=== PATIENT | female | born 1950 | race American Indian/Alaskan Native ===

== ENCOUNTER 2020-12-29 08:50 | Inpatient (IN) | payer MEDICARE ==
[2020-12-29] MEDS ORDERED: HYDROcodone/ACETAMINOPHEN 10-325MG TAB PO ONE (10:12)
--- NOTE | 2020-12-29 10:12 | Emergency Department Report ---
ED Upper Extremity Inj HPI - General Chief Complaint: Extremity Injury, Upper Stated Complaint: FALL/RT ARM INJURY Time Seen by Provider: 12/29/20 10:11 Source: patient Mode of arrival: Ambulatory Limitations: No Limitations - History of Present Illness Initial Comments: 70 yo AA comes to ER sp GLF. Mechanical in nature. She tripped on her slipper. Fall witnessed. Pt comes to ER via POV Co right elbow pain- large effusion on arrival On no blood thinners. Meds-BP medications AND METFORMIN Denies other injury radial and ulnar pulse plus 2 on exam MD Complaint: Injury to:: right, elbow -: Sudden Other Extremity Injury: Elbow: Right Other Injuries: none Handedness: right Place: home Improves With: immobilization Worsens With: movement of extremity Context: fall Associated Symptoms: denies other symptoms - Related Data Allergies Allergy/AdvReac Type Severity Reaction Status Date / Time No Known Allergies Allergy Unverified 12/29/20 10:01 ED Review of Systems ROS: Stated complaint: FALL/RT ARM INJURY Other details as noted in HPI Comment: All other systems reviewed and negative ED Past Medical Hx - Past Medical History Previous Medical History?: Yes Hx Hypertension: Yes Hx Diabetes: Yes - Surgical History Past Surgical History?: Yes - Family History Family history: no significant - Social History Smoking Status: Never Smoker Substance Use Type: None ED Physical Exam - General Limitations: No Limitations General appearance: alert, in no apparent distress - Head Head exam: Present: atraumatic, normocephalic - Eye Eye exam: Present: normal appearance - ENT ENT exam: Present: mucous membranes moist - Neck Neck exam: Present: normal inspection - Respiratory Respiratory exam: Present: normal lung sounds bilaterally. Absent: respiratory distress - Cardiovascular Cardiovascular Exam: Present: regular rate, normal rhythm. Absent: systolic murmur, diastolic murmur, rubs, gallop - GI/Abdominal GI/Abdominal exam: Present: soft, normal bowel sounds - Extremities Exam Extremities exam: Present: normal inspection - Expanded Upper Extremity Exam Right Elbow exam: Present: tenderness, swelling, abrasion, other (LARGE EFFUSION) Forearm Wrist exam: Present: normal inspection Hand Wrist exam: Present: normal inspection - Back Exam Back exam: Present: normal inspection - Neurological Exam Neurological exam: Present: alert, oriented X3 - Psychiatric Psychiatric exam: Present: normal affect, normal mood - Skin Skin exam: Present: warm, dry, intact, normal color. Absent: rash ED Course Vital Signs 12/29/20 09:58 Temperature 98.6 F Pulse Rate 60 Respiratory 18 Rate Blood Pressure 179/77 [Left] O2 Sat by Pulse 100 Oximetry - Reevaluation(s) Reevaluation #1: 12/29/20 11:06 Dr Ronald headley Reevaluation #2: 12/29/20 11:[address] JACKSON- ADMIT FOR SURGICAL REPAIR IN AM Reevaluation #3: 12/29/20 11:[address] WADSWORTH AND DR AUGUSTINE WILL ADMIT FOR OR IN AM PT UPDATED ED Medical Decision Making - Radiology Data Radiology results: report reviewed, image reviewed SEE REPORT - Medical Decision Making Vital Signs 12/29/20 09:58 Temperature 98.6 F Pulse Rate 60 Respiratory 18 Rate Blood Pressure 179/77 [Left] O2 Sat by Pulse 100 Oximetry XRAY NOTED MEDICATED FOR PAIN POST SPLINT ORDERED- ARCHIE WILL PLACE STAFFED WITH DR JACKSON/ANANTH/FAWN [place] [facility] [place] DR AUGUSTINE WILL SEE. [facility] [address] AWARE OF ADMIT; [facility] AWARE OF ADMIT AND NEED FOR SPLINT PT HAS BEEN UPDATED ON PLAN OF CARE. - Differential Diagnosis RO FX Critical care attestation.: If time is entered above; I have spent that time in minutes in the direct care of this critically ill patient, excluding procedure time. ED Disposition Clinical Impression: Olecranon fracture, Effusion of elbow joint, right Disposition: ADMITTED INPATIENT Is pt being admited?: Yes Does the pt Need Aspirin: No Condition: Stable Time of Disposition: 11:28
[2020-12-29] MEDS ORDERED: HYDROmorphone 1 MG/1 ML INJ IV ONE (11:27)
--- NOTE | 2020-12-29 11:34 | XRay Report ---
RIGHT ELBOW 2 VIEWS INDICATION: PAIN SP FALL. COMPARISON: None. IMPRESSION: A moderately displaced fracture is identified through the olecranon with intra-articular extension at the elbow joint. Displacement of the fracture measures up to 2.6 cm. The radial head an d distal humerus appear intact. Large hemarthrosis and severe soft tissue swelling is noted. Signer Name: Asad Ann Jr, MD Signed: 12/29/2020 11:23 AM Workstation Name: [id number]
--- NOTE | 2020-12-29 11:48 | History and Physical Report ---
History of Present Illness Chief complaint: I fell and hurt my arm History of present illness: 70 YO Female with Obesity Hypoventilation Syndrome, HTN, DM presents to ED for evaluation. Patient reported "I slipped and fell and hurt my arm". Patient states that she tripped and fell and landed on her right arm. Patient states that she experienced pain and swelling to her right arm shortly after her fall. Patient transported to [facility] via private vehicle for further care and evaluation of the aforementioned symptoms. The patient was seen and evaluated in the emergency department. All lab and imaging studies reviewed. Right arm x-ray was obtained and revealed a right displaced olecranon process fracture compli cated by right elbow effusion. Patient complains of severe pain with arm movement. Orthopedic surgery team consulted. Patient is pending surgical intervention. Patient denies fever, chills, chest pain, palpitation, productive cough, skin rash, recent ill contact, or known exposure to COVID-19. No prior admission for review. No medication listed at time of admission for reconciliation. Advanced care planning conducted in ED. Past History Past Medical History: diabetes, hypertension Past Surgical History: No surgical history, Other (Reviewed) Social history: , lives with family. denies: smoking, alcohol abuse, prescription drug abuse Family history: diabetes, hypertension Medications and Allergies Allergies Allergy/AdvReac Type Severity Reaction Status Date / Time No Known Allergies Allergy Unverified 12/29/20 10:01 Review of Systems Constitutional: other (I fell and hurt my arm), no weight loss, no weight gain, no fever, no chills Ears, nose, mouth and throat: no ear pain, no ear discharge, no tinnitis, no nasal congestion, no nasal discharge, no sinus pressure Breasts: no change in shape, no swelling, no mass Cardiovascular: no chest pain, no palpitations, no rapid/irregular heart beat, no edema, no syncope Respiratory: no cough, no cough with sputum, no hemoptysis, no shortness of breath Gastrointestinal: nausea, no abdominal pain, no vomiting, no diarrhea Genitourinary Female: no pelvic pain, no flank pain, no dysuria, no urinary frequency, no urgency Rectal: no pain, no incontinence, no bleeding Musculoskeletal: other (Right elbow pain and swelling) Integumentary: no rash, no pruritis, no redness, no sores Neurological: no head injury, no transient paralysis, no paralysis, no parathesias, no tingling, no seizures, no tremors Psychiatric: no anxiety, no memory loss, no sleep disturbances, no hypersomnia, no suicidal ideation Endocrine: no cold intolerance, no heat intolerance, no excessive thirst, no polydipsia, no nocturia, no excessive sweating Hematologic/Lymphatic: no easy bruising, no easy bleeding, no lymphedema Allergic/Immunologic: no allergic rhinitis, no wheezing, no persistent i nfections, no angioedema Exam - Constitutional Vitals: Temp Pulse Resp BP Pulse Ox 98.6 F 60 18 179/77 100 12/29/20 09:58 12/29/20 09:58 12/29/20 09:58 12/29/20 09:58 12/29/20 09:58 General appearance: Present: mild distress, obese - EENT Eyes: Present: PERRL ENT: hearing intact, clear oral mucosa - Neck Neck: Present: supple, normal ROM - Respiratory Respiratory effort: normal Respiratory: bilateral: CTA - Cardiovascular Heart Sounds: Present: S1 & S2. Absent: rub, click - Extremities Extremities: pulses symmetrical, No edema Peripheral Pulses: within normal limits - Abdominal General gastrointestinal: Present: soft, non-tender, non-distended, normal bowel sounds Female genitourinary: Present: normal - Integumentary Integumentary: Present: clear, warm, dry - Musculoskeletal Musculoskeletal: other (Right elbow pain, edema, diminished range of motion due to pain) - Psychiatric Psychiatric: appropriate mood/affect, intact judgment & insight - Neurologic Neurologic: CNII-XII intact, moves all extremities Results - Labs CBC & Chem 7: 12/29/20 11:34 12/29/20 11:34 Assessment and Plan - Patient Problems (1) Olecranon fracture Current Visit: No Status: Acute Qualifiers: Encounter type: initial encounter Plan to address problem: Orthopedic surgery service consulted, pain control, supportive care, surgical intervention as per surgical team. (2) Effusion of elbow joint, right Current Visit: No Status: Acute Plan to address problem: Supportive care, x-ray right elbow, orthopedic surgery service consulted. Surgical intervention as per surgical team. (3) Hypertension Current Visit: Yes Status: Acute Qualifiers: Hypertension type: primary hypertension Qualified Code(s): I10 - Essential (primary) hypertension Plan to address problem: Monitor blood pressure every shift, continue medical management (4) Diabetes Current Visit: Yes Status: Acute Plan to address problem: Consistent carbohydrate diet, sliding scale insulin, Accu-Chek, hypoglycemia protocol (5) Obesity hypoventilation syndrome Current Visit: Yes Status: Acute Plan to address problem: Balanced diet, increase physical activity at discharge, outpatient pulmonary follow-up for sleep study. (6) DVT prophylaxis Current Visit: Yes Status: Acute Plan to address problem: SCD to bilateral lower extremities while in bed, patient is ambulatory (7) Advance care planning Current Visit: Yes Status: Acute Plan to address problem: Disease education conducted, care plan discussed, diagnosis discussed, prognosis discussed, patient is full code, patient knowledges understanding and agreement with care plan, +30 minutes.
[2020-12-29] MEDS ORDERED: ONDANSETRON 4 MG/2 ML INJ IV PRN (12:00)
[2020-12-29] MEDS ORDERED: DEXTROSE 50% IN WATER (25GM) 50 ML SYRINGE IV PRN (12:25)
[2020-12-29] MEDS ORDERED: ALBUTEROL 2.5 MG/3 ML NEBU IH PRN (12:30)
[2020-12-29] MEDS ORDERED: ACETAMINOPHEN 325 MG TAB PO PRN (12:30)
[2020-12-29] MEDS ORDERED: HYDROmorphone 1 MG/1 ML INJ IV PRN (12:30)
[2020-12-29 12:50] LABS: Hematocrit 38.1 % (30.3-42.9); Hemoglobin 12.6 gm/dl (10.1-14.3); Mean Corpuscular HGB Conc 33 % (30-34); Mean Corpuscular Volume 86 fl (79-97); Platelet Count 321 K/mm3 (140-440); Red Blood Count 4.44 M/mm3 (3.65-5.03); Red Cell Distribution Width 15.6 % (13.2-15.2)
[2020-12-29 12:55] LABS: Alanine Aminotransferase 27 units/L (7-56); Albumin 4.1 g/dL (3.9-5); Blood Urea Nitrogen 14 mg/dL (7-17); Calcium 9.9 mg/dL (8.4-10.2); Hemolysis Index 4
[2020-12-29 13:29] LABS: BUN/Creatinine Ratio 20
--- NOTE | 2020-12-29 17:17 | Consultation ---
History of Present Illness - [facility] Consult date: 12/29/20 Consult reason: fracture History of present illness: 70 y/o female with c/o right elbow pain and swelling after fall at home today, seen in the ED where xrays taken reveal a displaced right olecranon fracture, no other injury noted... Past History Past Medical History: diabetes, hypertension Past Surgical History: No surgical history, Other (Reviewed) Social history: , lives with family. denies: smoking, alcohol abuse, prescription drug abuse Family history: diabetes, hypertension Medications and Allergies Allergies Allergy/AdvReac Type Severity Reaction Status Date / Time No Known Allergies Allergy Unverified 12/29/20 10:01 Active Meds: Active Medications Acetaminophen (Acetaminophen 325 Mg Tab) 650 mg PO Q4H PRN PRN Reason: Pain MILD(1-3)/Fever >100.5/LEE Albuterol (Albuterol 2.5 Mg/3 Ml Nebu) 2.5 mg IH Q4HRT PRN PRN Reason: Shortness Of Breath Dextrose (Dextrose 50% In Water (25gm) 50 Ml Syringe) 50 ml IV Q30MIN PRN; Protocol PRN Reason: Hypoglycemia Hydromorphone HCl (Hydromorphone 1 Mg/1 Ml Inj) 0.5 mg IV Q8H PRN PRN Reason: Pain , Severe (7-10) Insulin Human Lispro (Insulin Lispro 100 Unit/Ml) 0 unit SUB-Q Q6HR ROGELIO; Protocol Ondansetron HCl (Ondansetron 4 Mg/2 Ml Inj) 4 mg IV Q8H PRN PRN Reason: Nausea And Vomiting Oxycodone/Acetaminophen (Oxycodone /Acetaminophen 5-325mg Tab) 1 tab PO Q12H PRN PRN Reason: Pain, Moderate (4-6) Sodium Chloride (Sodium Chloride 0.9% 10 Ml Flush Syringe) 10 ml IV BID ROGELIO Last Admin: 12/29/20 15:50 Dose: 10 ml Documented by: Sodium Chloride (Sodium Chloride 0.9% 10 Ml Flush Syringe) 10 ml IV PRN PRN PRN Reason: LINE FLUSH Physical Examination - Physical exam Narrative exam: RUE - elbow - moderate swelling , skin intact, decreased active RoM, tender at proximal ulna, distal n/v intact Eyes: PERRL ENT: Positive: clear oral mucosa Respiratory effort: normal Respiratory: bilateral: CTA Rhythm: regular Heart Sounds: Positive: S1 & S2 General gastrointestinal: Positive: soft, non-tender, non-distended, normal bowel sounds Integumentary: clear, warm, dry Neurologic: Positive: CNII-XII intact, moves all extremities, gait normal. Nega tive: focal deficits Assessment and Plan Assessment displaced right olecranon fracture Recommendations -patient will require open reduction internal fixation right elbow fracture
[2020-12-29] MEDS: INSULIN LISPRO 100 UNIT/ML SUB-Q SCH ×2 (19:54→23:30)
[2020-12-30] MEDS: INSULIN LISPRO 100 UNIT/ML SUB-Q SCH ×2 (05:29→17:29)
[2020-12-30 05:45] LABS: Alanine Aminotransferase 44 units/L (7-56); Albumin 3.9 g/dL (3.9-5); Blood Urea Nitrogen 13 mg/dL (7-17); Calcium 9.6 mg/dL (8.4-10.2); Hemolysis Index 1
[2020-12-30 05:46] LABS: BUN/Creatinine Ratio 19
[2020-12-30] MEDS ORDERED: LACTATED RINGERS 1,000 ML ONE ×2 (08:45→11:37)
[2020-12-30] MEDS ORDERED: HYDROmorphone 1 MG/1 ML INJ IV PRN ×2 (09:00)
[2020-12-30] MEDS ORDERED: MIDAZOLAM 2 MG/2 ML INJ IV NR (09:00)
[2020-12-30] MEDS ORDERED: ONDANSETRON 4 MG/2 ML INJ IV PRN (09:00)
[2020-12-30] MEDS ORDERED: fentaNYL 100 MCG/2 ML INJ IV SCH (09:00)
--- NOTE | 2020-12-30 09:00 | Anesthesia Day of Surgery ---
Anesthesia Day of Surgery - Day of Surgery Patient Examined: Yes Patient H&P Reviewed: Yes Patient is NPO: Yes
--- NOTE | 2020-12-30 09:01 | Anesthesia Consultation ---
Anesthesia Consult and Med Hx Date of service: 12/30/20 - Airway Anesthetic Teeth Evaluation: Partials (Missing) ROM Head & Neck: Adequate Mental/Hyoid Distance: Adequate Mallampati Class: Class III Intubation Access Assessment: Probably Good - Pre-Operative Health Status ASA Pre-Surgery Classification: ASA3 Proposed Anesthetic Plan: General Nerve Block: IS - Pulmonary Hx Smoking: No Hx Respiratory Symptoms: No (+2FS) Hx Sleep Apnea: No - Cardiovascular System Hx Hypertension: Yes - Gastrointestinal Hx Gastroesophageal Reflux Disease: No - Hematic Hx Sickle Cell Disease: No - Other Systems Hx Obesity: Yes
[2020-12-30] MEDS ORDERED: BUPIVACAINE/PF (0.5%) 5 MG/1 ML 30 ML VIAL INFILTRATI ONE (09:04)
[2020-12-30] MEDS ORDERED: MIDAZOLAM 2 MG/2 ML INJ ONE (09:04)
--- NOTE | 2020-12-30 09:12 | Progress Note ---
Assessment and Plan Assessment and plan: -- Olecranon fracture Current Visit: No Status: Acute Orthopedic surgery evaluated the patient Patient is undergoing ORIF right elbow Postop care, pain management, PT OT --Effusion of elbow joint, right Current Visit: No Status: Acute s/p fall , elbow fracture , surgical procedure management per orthopedic surgeon supportive care, -- Hypertension Current Visit: Yes Status: Acute Continue current antihypertensives As needed hydralazine , closely monitor blood pressures Optimal pain management --Type II diabetes mellitus Current Visit: Yes Status: Acute Accu-Cheks , sliding scale coverage , ADA diet Long-acting insulin as needed --Obesity BMI 36.0 Current Visit: Yes Status: Acute Diet modification, lifestyle changes, exercise as tolerated And weight reduction when patient is medically stable --DVT prophylaxis Current Visit: Yes Status: Acute SCD , pharmacological anticoagulation per Ortho Patient is postoperative status --Advance care planning Current Visit: Yes Status: Acute Plan of care reviewed with the patient and her nurse Follow-up evaluation recommendation Possible ORIF surgery today Patient is n.p.o. status History Interval history: She was admitted with history of fall and fracture right elbow orthopedic evaluated the patient and scheduled for ORIF Right elbow today Hospitalist Physical - Constitutional Vitals: Temp Pulse Resp BP Pulse Ox 97.2 F L 63 15 140/83 96 12/29/20 12:38 12/30/20 06:01 12/29/20 19:30 12/30/20 08:01 12/30/20 08:01 General appearance: Present: mild distress, obese - EENT Eyes: Present: PERRL, EOM intact - Neck Neck: Present: supple, normal ROM - Respiratory Respiratory effort: normal Respiratory: bilateral: diminished, negative: rales, rhonchi, wheezing - Cardiovascular Rhythm: regular Heart Sounds: Present: S1 & S2 - Extremities Extremities: no ischemia, abnormal (Structures right elbow) - Abdominal General gastrointestinal: soft, non-tender, non-distended, normal bowel sounds - Integumentary Integumentary: Present: clear, warm - Psychiatric Psychiatric: appropriate mood/affect, cooperative - Neurologic Neurologic: CNII-XII intact, moves all extremities Results - Labs CBC & Chem 7: 12/29/20 11:34 12/30/20 04:51 Labs: Laboratory Last Values WBC 15.2 K/mm3 (4.5-11.0) H 12/29/20 11:34 RBC 4.44 M/mm3 (3.65-5.03) 12/29/20 11:34 Hgb 12.6 gm/dl (10.1-14.3) 12/29/20 11:34 Hct 38.1 % (30.3-42.9) 12/29/20 11:34 MCV 86 fl (79-97) 12/29/20 11:34 MCH 28 pg (28-32) 12/29/20 11:34 MCHC 33 % (30-34) 12/29/20 11:34 RDW 15.6 % (13.2-15.2) H 12/29/20 11:34 Plt Count 321 K/mm3 (140-440) 12/29/20 11:34 Sodium 144 mmol/L (137-145) 12/30/20 04:51 Potassium 3.5 mmol/L (3.6-5.0) L 12/30/20 04:51 Chloride 105.6 mmol/L (98-107) 12/30/20 04:51 Carbon Dioxide 28 mmol/L (22-30) 12/30/20 04:51 Anion Gap 14 mmol/L 12/30/20 04:51 BUN 13 mg/dL (7-17) 12/30/20 04:51 Creatinine 0.7 mg/dL (0.6-1.2) 12/30/20 04:51 Estimated GFR > 60 ml/min 12/30/20 04:51 BUN/Creatinine Ratio 19 % 12/30/20 04:51 Glucose 127 mg/dL (65-100) H 12/30/20 04:51 POC Glucose 113 mg/dL (70-105) H 12/30/20 05:27 Calcium 9.6 mg/dL (8.4-10.2) 12/30/20 04:51 Total Bilirubin 0.50 mg/dL (0.1-1.2) 12/30/20 04:51 AST 40 units/L (5-40) 12/30/20 04:51 ALT 44 units/L (7-56) 12/30/20 04:51 Alkaline Phosphatase 136 units/L (35-129) H 12/30/20 04:51 Total Protein 8.3 g/dL (6.3-8.2) H 12/30/20 04:51 Albumin 3.9 g/dL (3.9-5) 12/30/20 04:51 Albumin/Globulin Ratio 0.9 % 12/30/20 04:51 Blood Type B POSITIVE 12/29/20 11:40 Antibody Screen Negative 12/29/20 11:40 Active Medications - Current Medications Current Medications: Generic Name Dose Route Start Last Admin Trade Name Freq PRN Reason Stop Dose Admin Acetaminophen 650 mg 12/29/20 12:30 Acetaminophen 325 Mg Tab PO Q4H PRN Pain MILD(1-3)/Fever >100.5/LEE Albuterol 2.5 mg 12/29/20 12:30 Albuterol 2.5 Mg/3 Ml Nebu IH Q4HRT PRN Shortness Of Breath Dextrose 50 ml 12/29/20 12:25 Dextrose 50% In Water (25gm) 50 Ml Syringe IV Q30MIN PRN Hypoglycemia Protocol Fentanyl 100 mcg 12/30/20 09:00 Fentanyl 100 Mcg/2 Ml Inj IV 12/30/20 12:00 ONCE ROGELIO Hydromorphone HCl 0.5 mg 12/29/20 12:30 Hydromorphone 1 Mg/1 Ml Inj IV Q8H PRN Pain , Severe (7-10) Hydromorphone HCl 0.25 mg 12/30/20 09:00 Hydromorphone 1 Mg/1 Ml Inj IV 12/30/20 17:00 Q10MIN PRN Pain, Moderate (4-6) Hydromorphone HCl 0.5 mg 12/30/20 09:00 Hydromorphone 1 Mg/1 Ml Inj IV 12/30/20 17:00 Q10MIN PRN Pain , Severe (7-10) Lactated Ringer's 1,000 mls @ 125 mls/hr 12/30/20 09:00 Lactated Ringers IV DIRECT ROGELIO Insulin Human Lispro 0 unit 12/29/20 18:00 12/30/20 05:29 Insulin Lispro 100 Unit/Ml SUB-Q Not Given Q6HR [facility] Protocol Midazolam HCl 2 mg 12/30/20 09:00 Midazolam 2 Mg/2 Ml Inj IV 12/30/20 23:59 PREOP NR Ondansetron HCl 4 mg 12/29/20 12:00 Ondansetron 4 Mg/2 Ml Inj IV Q8H PRN Nausea And Vomiting Ondansetron HCl 4 mg 12/30/20 09:00 Ondansetron 4 Mg/2 Ml Inj IV 12/30/20 17:00 ONCE PRN Nausea And Vomiting Oxycodone/Acetaminophen 1 tab 12/29/20 12:30 Oxycodone /Acetaminophen 5-325mg Tab PO Q12H PRN Pain, Moderate (4-6) Sodium Chloride 10 ml 12/29/20 13:00 12/29/20 22:00 Sodium Chloride 0.9% 10 Ml Flush Syringe IV 10 ml BID ROGELIO Administration Sodium Chloride 10 ml 12/29/20 13:00 Sodium Chloride 0.9% 10 Ml Flush Syringe IV PRN PRN LINE FLUSH
[2020-12-30] MEDS ORDERED: LIDOCAINE PF 100 MG/5 ML (CARDIAC SYRINGE) IV ONE (09:22)
[2020-12-30] MEDS ORDERED: propofoL 200 MG/20 ML VIAL IV ONE ×2 (09:22→10:54)
[2020-12-30] MEDS ORDERED: ONDANSETRON 4 MG/2 ML INJ ONE (09:22)
[2020-12-30] MEDS ORDERED: fentaNYL 100 MCG/2 ML INJ ONE (09:22)
[2020-12-30] MEDS: LACTATED RINGERS 1,000 ML IV SCH ×2 (09:25→17:13)
[2020-12-30] MEDS ORDERED: ePHEDrine SULFATE 50 MG/1 ML INJ ONE (10:05)
[2020-12-30] MEDS ORDERED: SODIUM CHLORIDE 0.9% IRR 1,500 ML BOTTLE IR ONE (10:27)
[2020-12-30] MEDS ORDERED: SUCCINYLCHOLINE CHLORIDE 200 MG/10 ML INJ MDV ONE (10:58)
--- NOTE | 2020-12-30 12:36 | Procedure Note ---
Date of procedure: 12/30/20 Pre-op diagnosis: Displaced right olecranon fracture Post-op diagnosis: same Procedure: Open reduction internal fixation right olecranon Procedure The patient was brought to the OR after being given a scalene nerve block in preop holding neck she was placed on the OR table supine following induction with MAC anesthesia the patient's right upper extremity was prepped and draped in the usual sterile manner. A timeout procedure was done to identify the pa tient and the correct operative site. The arm was then exsanguinated followed by inflation of the pneumatic tourniquet to 250 mmHg. Using a dorsal curvilinear incision incision over the medial aspect of the elbow this was taken down sharply through skin subcu the periosteum overlying the distal fracture was then using a periosteal elevator the proximal fragment was seen there was early hematoma formation this was cleaned following gentle manipulation the fracture fragments were manipulated into a reduced position and held by way of bone clamps next fixation temporary fixation was obtained via K wires. A four hole contoured locked plate was applied to the proximal ulnar this was then stabilized with screws of various lengths AP and lateral x-rays were obtained via C arm showing good reduction at the fracture and placement of our hardware next the wound was then copiously irrigated and was closed in a standard routine fashion postop dressings were applied as well as a well-padded posterior mold the patient tolerated procedure there were no complications Anesthesia: MAC, regional Surgeon: PRANAY JACKSON (Jace Fritz, 1st assist) Estimated blood loss: minimal Pathology: none Condition: stable Disposition: PACU
--- NOTE | 2020-12-30 14:37 | XRay Report ---
CHEST 1 VIEW 12/30/2020 2:19 PM INDICATION / CLINICAL INFORMATION: fall. COMPARISON: None available. FINDINGS: SUPPORT DEVICES: None. HEART / MEDIASTINUM: No significant abnormality. LUNGS / PLEURA: Mild increased interstitial prominence and opacities in the right upper lung. There i s some density/atelectasis in the right lower lung. No pneumothorax. Signer Name: Palomo Boland MD Signed: 12/30/2020 2:32 PM Workstation Name: [id number]
--- NOTE | 2020-12-30 15:00 | Post Anesthesia Evaluation ---
- Post Anesthesia Evaluation Patient Participated: Yes Airway Patent: Yes Stable Respiratory Function: Yes Nausea/Vomiting: No Temp > 96.8F: Yes Pain Manageable: Yes Adequeate Hydration: Yes Anesthesia Complications: No Block Receding Appropriately: Yes Patient on Ventilator: No
--- NOTE | 2020-12-30 17:01 | XRay Report ---
Right elbow 2 views INDICATION: Right elbow pain IMPRESSION: Satisfactory ORIF of the right elbow fracture. Fluoroscopy time: 7 seconds. Fluoroscopic images: 2. Signer Name: Robson Lei MD Signed: 12/30/2020 4:57 PM Workstation Name: [id number]
--- NOTE | 2020-12-30 18:26 | Event Note ---
Orthopedic evaluated the patient Patient underwent open reduction internal fixation of right olecranon Patient tolerated the procedure well Patient is being transferred to fourth floor after the procedure Patient feels better complains of some pain Continue postop care, pain medications, IV fluids Physical therapy, Occupational Therapy DC planning per case management when patient is medically stable and patient is medically stable Plan of care reviewed with the patient and patient's nurse
[2020-12-30] MEDS: POTASSIUM CHLORIDE 10 MEQ 10 MEQ/100 ML BAG IV SCH (21:31)
[2020-12-30] MEDS: oxyCODONE /ACETAMINOPHEN 5-325MG TAB PO PRN (21:34)
[2020-12-31] MEDS: INSULIN LISPRO 100 UNIT/ML SUB-Q SCH ×3 (03:13→12:18)
[2020-12-31] MEDS: oxyCODONE /ACETAMINOPHEN 5-325MG TAB PO PRN (07:13)
[2020-12-31 12:20] VITALS: BP 160/82
--- NOTE | 2020-12-31 12:55 | Discharge Summary ---
Providers - Providers Date of Admission: 12/29/20 11:50 Date of discharge: 12/31/20 Attending physician: GERMAINE HERNANDEZ 12/30/20 18:26 Physical Therapy Evaluation and Treat [CONS] Routine Comment: Reason For Exam: Fracture right elbow s/p ORIF, evaluate and treat 12/31/20 09:53 Occupational Therapy Evaluate and Treat [CONS] Routine Comment: Reason For Exam: Post Right Olecraneon Surgery Primary care physician: [facility] Hospitalization Reason for admission: History of fall/right olecranon fracture Condition: Stable Pertinent studies: X-ray right elbow Chest x-ray ORIF right olecranon Hospital course: I fell and hurt my arm History of present illness: 70 YO Female with Obesity Hypoventilation Syndrome, HTN, DM presents to ED for evaluation. Patient reported "I slipped and fell and hurt my arm". Patient states that she tripped and fell and landed on her right arm. Patient states that she experienced pain and swelling to her right arm shortly after her fall. Patient transported to [facility] via private vehicle for further care and evaluation of the aforementioned symptoms. The patient was seen and evaluated in the emergency department. All lab and imaging studies reviewed. Right arm x-ray was obtained and revealed a right displaced olecranon process fracture complicated by right elbow effusion. Patient complains of severe pain with arm movement. Orthopedic surgery team consulted. Patient is pending surgical intervention. Patient denies fever, chills, chest pain, palpitation, productive cough, skin rash, recent ill contact, or known exposure to COVID-19. No prior admission for review. No medication listed at time of admission for reconciliation. Advanced care planning conducted in ED. Discharge diagnosis: -- Olecranon fracture Current Visit: No Status: Acute Orthopedic surgery evaluated the patient Patient is undergoing ORIF right elbow Postop care, pain management, PT OT --Effusion of elbow joint, right Current Visit: No Status: Acute s/p fall , elbow fracture , surgical procedure management per orthopedic surgeon supportive care, -- Hypertension Current Visit: Yes Status: Acute Continue current antihypertensives As needed hydralazine , closely monitor blood pressures Optimal pain management --History of fall; Current Visit: Yes Status: Acute Fall precautions --Type II diabetes mellitus Current Visit: Yes Status: Acute Accu-Cheks , sliding scale coverage , ADA diet Long-acting insulin as needed --Obesity BMI 36.0 Current Visit: Yes Status: Acute Diet modification, lifestyle changes, exercise as tolerated And weight reduction when patient is medically stable Stable at discharge Disposition: 06 HOME HEALTH CARE SERVICE Final Discharge Diagnosis (Prints w/discharge instructions): Right olecranon fracture. s/p ORIF. Hypertension. Hyperglycemia/prediabetes/diet controlled. Obesity; BMI 39.9 Time spent for discharge: 35 min Core Measure Documentation - Palliative Care Palliative Care/ Comfort Measures: Not Applicable - Core Measures Any of the following diagnoses?: none Exam - Constitutional Vitals: Temp Pulse Resp BP Pulse Ox 98.2 F 84 18 160/82 98 12/31/20 12:19 12/31/20 12:19 12/31/20 12:12/31/20 12:12/31/20 12:19 General appearance: Present: no acute distress, well-nourished - EENT Eyes: Present: PERRL, EOM intact - Neck Neck: Present: supple, normal ROM - Respiratory Respiratory effort: normal Respiratory: bilateral: diminished, negative: rales, rhonchi, wheezing - Cardiovascular Rhythm: regular Heart Sounds: Present: S1 & S2 - Extremities Extremities: abnormal (Right elbow in a sling) - Abdominal General gastrointestinal: Present: soft, non-tender, non-distended, normal bowel sounds - Integumentary Integumentary: Present: clear, warm - Musculoskeletal Musculoskeletal: strength equal bilaterally, generalized weakness - Psychiatric Psychiatric: appropriate mood/affect, cooperative - Neurologic Neurologic: moves all extremities Plan Activity: no restrictions Diet: regular Additional Instructions: Fall precautions. Follow-up primary care physician, orthopedic surgeon per schedule. If you have worsening symptoms contact MD or go to emergency room as needed. Advised diet modification, lifestyle changes, exercise as tolerated and weight reduction when you are medically stable Follow up with: PRIMARY CAREMD [Primary Care Provider] - 7 Days PRANAY JACKSON MD [Staff Physician] - 7 Days Prescriptions: hydrALAZINE [Apresoline TAB] 10 mg PO TID PRN #30 tablet PRN Reason: Hypertension Oxycodone HCl/Acetaminophen [Percocet 10/325 mg] 1 each PO Q6HR PRN #30 tablet PRN Reason: Pain oxyCODONE /ACETAMINOPHEN [Percocet 5/325] 1 tab PO Q6HR PRN #30 tablet PRN Reason: Pain
== END 2020-12-31 16:43 | disposition home health service (06) | DRG 511 ==
LOC: ED 08:50 → 3A 11:50 → 4A 13:38
PROVIDERS: ADMIT Internal Medicine; ATTEND Internal Medicine
PROC: 0PSK04Z Reposition Right Ulna with Internal Fixation Device, Open Approach (ICD-10-PCS; principal; 2020-12-30)
DX: S52.021A Displaced fracture of olecranon process without intraarticular extension of right ulna, initial encounter for closed fracture (principal); E66.2 Morbid (severe) obesity with alveolar hypoventilation; I10 Essential (primary) hypertension; M25.421 Effusion, right elbow; E11.65 Type 2 diabetes mellitus with hyperglycemia; W18.39XA Other fall on same level, initial encounter; Y93.89 Activity, other specified; Y92.89 Other specified places as the place of occurrence of the external cause; Y99.8 Other external cause status; Z83.3 Family history of diabetes mellitus; Z82.49 Family history of ischemic heart disease and other diseases of the circulatory system; Z68.39 Body mass index [BMI] 39.0-39.9, adult
CPT/HCPCS: 36415; 64450; 71045; 80053; 82962; 85027; 86850; 86900; 86901; G0378; C1713; J0330; J1170; J2001; J2250; J2405; J2704; J3010; J7120

== ENCOUNTER 2022-01-09 09:37 | Emergency (ER) | payer MEDICARE ==
--- NOTE | 2022-01-09 10:35 | Emergency Department Report ---
- General Chief complaint: Weakness Stated complaint: WEAKNESS Time Seen by Provider: 01/09/22 10:15 Source: patient, EMS Mode of arrival: Stretcher Limitations: Physical Limitation - History of Present Illness Initial comments: 71-year-old -[place] female complaining of having difficulty ambulating. Says that she feels she cannot move the left leg because it hurts. Complaint: difficulty walking -: Gradual, days(s) Location: LLE Severity: mild Severity scale (0 -10): 0 Quality: other Improves with: none Worsens with: none - Related Data Previous Rx's Medication Instructions Recorded Last Taken Type Oxycodone HCl/Acetaminophen 1 each PO Q6HR PRN #30 tablet 12/30/20 Unknown Rx [Percocet 10/325 mg] hydrALAZINE [Apresoline TAB] 10 mg PO TID PRN #30 tablet 12/31/20 Unknown Rx Naproxen [Naprosyn] 500 mg PO Q12HR PRN #20 01/09/22 Unknown Rx oxyCODONE /ACETAMINOPHEN [Percocet 1 tab PO Q6HR PRN #30 tablet 01/09/22 Unknown Rx 5/325 mg] Allergies Allergy/AdvReac Type Severity Reaction Status Date / Time No Known Allergies Allergy Verified 12/30/20 08:13 ED Review of Systems ROS: Stated complaint: WEAKNESS Other details as noted in HPI ED Past Medical Hx - Past Medical History Hx Hypertension: Yes Hx Diabetes: Yes Hx Sickle Cell Disease: No - Social History Smoking Status: Never Smoker - Medications Home Medications: Home Medications Medication Instructions Recorded Confirmed Last Taken Type Oxycodone HCl/Acetaminophen 1 each PO Q6HR PRN #30 tablet 12/30/20 Unknown Rx [Percocet 10/325 mg] hydrALAZINE [Apresoline TAB] 10 mg PO TID PRN #30 tablet 12/31/20 Unknown Rx Naproxen [Naprosyn] 500 mg PO Q12HR PRN #20 01/09/22 Unknown Rx oxyCODONE /ACETAMINOPHEN [Percocet 1 tab PO Q6HR PRN #30 tablet 01/09/22 Unknown Rx 5/325 mg] ED Physical Exam - General Limitations: No Limitations General appearance: alert, in no apparent distress - Head Head exam: Present: atraumatic, normocephalic, normal inspection - Eye Eye exam: Present: normal appearance, PERRL, EOMI - ENT ENT exam: Present: normal exam, normal orophraynx, mucous membranes dry - Neck Neck exam: Present: normal inspection - Respiratory Respiratory exam: Present: normal lung sounds bilaterally - Cardiovascular Cardiovascular Exam: Present: regular rate, normal rhythm, normal heart sounds - GI/Abdominal GI/Abdominal exam: Present: soft. Absent: distended, tenderness, guarding - Extremities Exam Extremities exam: Present: normal inspection, full ROM, normal capillary refill - Back Exam Back exam: Present: normal inspection, full ROM - Neurological Exam Neurological exam: Present: alert, oriented X3, CN II-XII intact, normal gait, reflexes normal. Absent: motor sensory deficit - Expanded Neurological Exam Expanded Neurological exam: Absent: innattentive, expressive aphasia, total aphasia Patient oriented to: Present: person, place, time Speech: Present: fluid speech Cranial nerves: EOM's Intact: Normal, Gag Reflex: Normal, Tongue Deviation: Normal, Nystagmus: Normal, Facial Sensation: Normal, Facial Palsy with Forehead Movement: Normal, Facial Palsy without Forehead Movement: Normal Cerebellar function: Finger to Nose: Normal, Heel to Serrano: Normal, Romberg: Normal Upper motor neuron: Raul Neglect: Normal, Pronator Drift: Normal, Babinski Sign: Normal, Sensory Extinction: Normal Sensory exam: Upper Extremity Light Touch: Normal, Upper Extremity Pin Prick: Normal, Upper Extremity Temperature: Normal, UE 2 Point Discrimination: Normal, Lower Extremity Light Touch: Normal, Lower Extremity Pin Prick: Normal, Lower Extremity Temperature: Normal, LE 2 Point Discrimination: Normal Motor strength exam: RUE: 5, LUE: 5, RLE: 5, LLE: 5 Best Eye Response (Kianna): (4) open spontaneously Best Motor Response ([place]): (6) obeys commands Best Verbal Response (Kianna): (5) oriented [place] Total: 15 - Psychiatric Psychiatric exam: Present: normal affect - Skin Skin exam: Present: warm ED Course Vital Signs 01/09/22 09:38 Temperature 98.1 F Pulse Rate 81 Respiratory 16 Rate Blood Pressure 170/110 [Right] O2 Sat by Pulse 95 Oximetry - Reevaluation(s) Reevaluation #1: 01/09/22 14:41 Patient ambulates in the emergency department without any difficulty. Vital signs are stable. That is why she had difficulty breathing. Has no acute weakness. ED Medical Decision Making - Lab Data Result diagrams: 01/09/22 11:01 Critical care attestation.: If time is entered above; I have spent that time in minutes in the direct care of this critically ill patient, excluding procedure time. ED Disposition Clinical Impression: Arthritis of knee, left, Diabetes Disposition: HOME / SELF CARE / HOMELESS Is pt being admited?: No Does the pt Need Aspirin: No Condition: Stable Instructions: Type 2 Diabetes Mellitus, Diagnosis, Adult, Arthritis, [id number], Diabetes Mellitus Type 2 in Adults (ED) Prescriptions: Naproxen [Naprosyn] 500 mg PO Q12HR PRN #20 PRN Reason: Pain, Moderate (4-6) oxyCODONE /ACETAMINOPHEN [Percocet 5/325 mg] 1 tab PO Q6HR PRN #30 tablet PRN Reason: Pain Referrals: PERI BURLESON MD [Primary Care Provider] - 3-5 Days
--- NOTE | 2022-01-09 11:23 | XRay Report ---
XR knee 1-2V LT INDICATION / CLINICAL INFORMATION: knee pain. COMPARISON: None available. FINDINGS: BONES/JOINT(S): No acute fracture or subluxation. Severe DJD in the left knee with a small joint effu bijal. No focal bone erosions or focal osteopenia to suggest inflammatory arthropathy. SOFT TISSUES: No significant abnormality. ADDITIONAL FINDINGS: None. Signer Name: Ayush Yusuf MD Signed: 01/09/2022 11:19 AM Workstation Name: [employer]
--- NOTE | 2022-01-09 12:02 | Cat Scan Report ---
CT BRAIN: 01/09/2022 INDICATION / CLINICAL INFORMATION: gonzales. COMPARISON: None available. FINDINGS: BRAIN/INTRACRANIAL STRUCTURES: Unenhanced CT images of the brain demonstrate no evidence of acute abn ormality. Ventricles and sulci are prominent in size, consistent with age-related atrophic change. Prominent chronic white matter hypoattenuation is present throughout the cerebral hemispheric white m atter. There is no CT evidence of acute ischemic injury, hemorrhage, or mass. There are no abnormal extra-ax ial fluid collections. EXTRACRANIAL STRUCTURES: Unremarkable. IMPRESSION: No acute abnormality. Chronic and age-related changes. All CT scans at this location are performed using dose reduction to ALARA by means of automated expos ure control. Signer Name: Jhonny Torres MD Signed: 01/09/2022 11:58 AM Workstation Name: [employer]
[2022-01-09 13:06] LABS: Alanine Aminotransferase 19 units/L (7-56); Albumin 3.9 g/dL (3.9-5); BUN/Creatinine Ratio 11; Blood Urea Nitrogen 9 mg/dL (7-17); Calcium 8.7 mg/dL (8.4-10.2); Hemolysis Index 2
[2022-01-09 15:08] VITALS: BP 186/86
[2022-01-09 19:01] LABS: Basophils % (Auto) 0.7 % (0.0-1.8); Hematocrit 36.5 % (30.3-42.9); Hemoglobin 11.7 gm/dl (10.1-14.3); Lymphocytes # (Auto) 0.9 K/mm3 (1.2-5.4); Lymphocytes % (Auto) 15.2 % (13.4-35.0); Mean Corpuscular HGB Conc 32 % (30-34); Mean Corpuscular Volume 85 fl (79-97); Monocytes # (Auto) 0.9 K/mm3 (0.0-0.8); Monocytes % (Auto) 15.9 % (0.0-7.3); Platelet Count 242 K/mm3 (140-440); Red Blood Count 4.28 M/mm3 (3.65-5.03)
--- NOTE | 2022-01-10 09:30 | Electrocardiograph Report ---
[facility] Test Date: 2022-01-09 Test Time: 11:05:39 Pat Name: CARMELO FERRARA Department: Room: Gender: F Clinical Research Nurse Coordinator: KATIANA : 1950 Requested By: LEESA MCADAMS Order Number: [id number] Reading MD: Gene Paul Measurements Intervals [place] Rate: 58 P: 58 SC: 168 QRS: -20 QRSD: 98 T: 172 QT: 386 QTc: 381 Interpretive Statements Sinus bradycardia LVH with secondary repolarization abnormality No previous ECG available for comparison Electronically Signed On 01-10-2022 9:30:26 EDT by Gene Paul
== END 2022-01-09 15:08 | disposition home or self-care (01) ==
LOC: ED 09:37
DX: M17.12 Unilateral primary osteoarthritis, left knee (principal); E11.9 Type 2 diabetes mellitus without complications; I10 Essential (primary) hypertension; Z79.899 Other long term (current) drug therapy
CPT/HCPCS: 36415; 70450; 80053; 85025; 93005; 99284

== ENCOUNTER 2022-01-11 09:17 | Emergency (ER) | payer MEDICARE ==
[2022-01-11 17:53] LABS: Basophils % (Auto) 0.8 % (0.0-1.8); Eosinophils % (Auto) 0.8 % (0.0-4.3); Hematocrit 40.3 % (30.3-42.9); Hemoglobin 12.6 gm/dl (10.1-14.3); Lymphocytes # (Auto) 1.7 K/mm3 (1.2-5.4); Lymphocytes % (Auto) 35.2 % (13.4-35.0); Mean Corpuscular HGB Conc 31 % (30-34); Mean Corpuscular Volume 85 fl (79-97); Monocytes # (Auto) 0.5 K/mm3 (0.0-0.8); Monocytes % (Auto) 9.5 % (0.0-7.3); Platelet Count 270 K/mm3 (140-440); Red Blood Count 4.74 M/mm3 (3.65-5.03); Red Cell Distribution Width 16.2 % (13.2-15.2)
[2022-01-11 18:25] LABS: Alanine Aminotransferase 18 units/L (7-56); Albumin 4.4 g/dL (3.9-5); BUN/Creatinine Ratio 17; Blood Urea Nitrogen 12 mg/dL (7-17); Calcium 9.3 mg/dL (8.4-10.2); Hemolysis Index 3
[2022-01-11] MEDS ORDERED: SODIUM CHLORIDE 0.9% 1000 ML 1,000 ML IV ONE (23:42)
--- NOTE | 2022-01-11 23:48 | Emergency Department Report ---
- General Chief complaint: Dizziness Stated complaint: WEAKNESS Time Seen by Provider: 01/11/22 23:01 Source: patient Mode of arrival: Ambulatory Limitations: No Limitations - History of Present Illness Initial comments: 71-year-old female who presents with generalized body weakness that has been going on for the last couple of days progressively getting worse. Patient denies any fever or chills. She also mentions some nausea without emesis. No diarrhea or constipation reported. No other modifying or associated factors reported. MD Complaint: generalized weakness Severity scale (0 -10): 0 - Related Data Previous Rx's Medication Instructions Recorded Last Taken Type Oxycodone HCl/Acetaminophen 1 each PO Q6HR PRN #30 tablet 12/30/20 Unknown Rx [Percocet 10/325 mg] hydrALAZINE [Apresoline TAB] 10 mg PO TID PRN #30 tablet 12/31/20 Unknown Rx Naproxen [Naprosyn] 500 mg PO Q12HR PRN #20 01/09/22 Unknown Rx oxyCODONE /ACETAMINOPHEN [Percocet 1 tab PO Q6HR PRN #30 tablet 01/09/22 Unknown Rx 5/325 mg] Ondansetron (Nf) [Zofran TAB] 8 mg PO Q8HR PRN 5 Days #15 tablet 01/12/22 Unknown Rx NS Allergies Allergy/AdvReac Type Severity Reaction Status Date / Time No Known Allergies Allergy Verified 12/30/20 08:13 ED Review of Systems ROS: Stated complaint: WEAKNESS Other details as noted in HPI Comment: All other systems reviewed and negative Constitutional: weakness Musculoskeletal: arthralgia ED Past Medical Hx - Past Medical History Hx Hypertension: Yes Hx Diabetes: Yes (metformin) Hx Sickle Cell Disease: No - Social History Smoking Status: Never Smoker - Medications Home Medications: Home Medications Medication Instructions Recorded Confirmed Last Taken Type Oxycodone HCl/Acetaminophen 1 each PO Q6HR PRN #30 tablet 12/30/20 Unknown Rx [Percocet 10/325 mg] hydrALAZINE [Apresoline TAB] 10 mg PO TID PRN #30 tablet 12/31/20 Unknown Rx Naproxen [Naprosyn] 500 mg PO Q12HR PRN #20 01/09/22 Unknown Rx oxyCODONE /ACETAMINOPHEN [Percocet 1 tab PO Q6HR PRN #30 tablet 01/09/22 Unknown Rx 5/325 mg] Ondansetron (Nf) [Zofran TAB] 8 mg PO Q8HR PRN 5 Days #15 tablet 01/12/22 Unknown Rx NS ED Physical Exam - General Limitations: No Limitations General appearance: alert, in no apparent distress - Head Head exam: Present: normal inspection - Eye Eye exam: Present: normal appearance Pupils: Present: normal accommodation - ENT ENT exam: Present: normal exam, normal orophraynx, mucous membranes dry - Neck Neck exam: Present: normal inspection, full ROM. Absent: tenderness - Respiratory Respiratory exam: Present: normal lung sounds bilaterally. Absent: respiratory distress, chest wall tenderness, accessory muscle use - Cardiovascular Cardiovascular Exam: Present: regular rate, normal rhythm, normal heart sounds - GI/Abdominal GI/Abdominal exam: Present: soft, normal bowel sounds. Absent: distended, tenderness - Extremities Exam Extremities exam: Present: normal inspection, normal capillary refill. Absent: tenderness, pedal edema, joint swelling - Back Exam Back exam: Absent: tenderness - Neurological Exam Neurological exam: Present: alert, oriented X3 - Psychiatric Psychiatric exam: Present: normal affect, normal mood - Skin Skin exam: Present: warm, normal color ED Course Vital Signs 01/11/22 01/11/22 01/12/22 09:28 19:11 03:31 Temperature 98.5 F 99.3 F Pulse Rate 69 58 L Respiratory 14 18 20 Rate Blood Pressure 163/71 Blood Pressure 166/99 [Left] O2 Sat by Pulse 97 96 95 Oximetry 01/12/22 01/12/22 05:31 05:56 Temperature Pulse Rate 87 50 L Respiratory 19 17 Rate Blood Pressure Blood Pressure 144/95 162/41 [Left] O2 Sat by Pulse 100 98 Oximetry ED Medical Decision Making - Lab Data Result diagrams: 01/11/22 17:14 01/11/22 17:14 - Medical Decision Making Patient presented with generalized weakness--associated with nausea without emesis--we will go ahead and order routine labs including CBC, CMP, urinalysis for any sign of infection or electrolyte derangements. We will also check thyroid profile to rule out any hypo or hyperthyroidism as a cause. In the meantime we will go ahead and order 1 L of IV fluids x1 for hydration while waiting for above labs Critical care attestation.: If time is entered above; I have spent that time in minutes in the direct care of this critically ill patient, excluding procedure time. ED Disposition Clinical Impression: Generalized muscle weakness, Nausea Disposition: 01 HOME / SELF CARE / HOMELESS Is pt being admited?: No Does the pt Need Aspirin: No Condition: Stable Instructions: Nausea, Adult, [id number], Weakness, [id number] Additional Instructions: Increase your daily fluid to help your hydration Take your nausea medicine as prescribed to continue to help your symptoms : Follow-up with your primary doctor in the next 3 to 5 days for progress Please do not hesitate to call or return to emergency room if your symptoms worsen Prescriptions: Ondansetron (Nf) [Zofran TAB] 8 mg PO Q8HR PRN 5 Days #15 tablet NS PRN Reason: Nausea And Vomiting Referrals: PERI BURLESON MD [Primary Care Provider] - 3-5 Days Time of Disposition: 06:11
[2022-01-12 00:16] LABS: Free T4 (Free Thyroxine) 1.09 ng/dL (0.76-1.46)
[2022-01-12 06:32] VITALS: BP 162/41
--- NOTE | 2022-01-12 11:34 | Electrocardiograph Report ---
[facility] Test Date: 2022-01-11 Test Time: 09:32:02 Pat Name: CARMELO FERRARA Department: Room: Gender: F Forensic Examiner: AF : 1950 Requested By: ED DOC Order Number: [id number] Reading MD: Wellington Ribeiro Measurements Intervals [place] Rate: 63 P: 28 DE: 157 QRS: -21 QRSD: 92 T: 20 QT: 455 QTc: 465 Interpretive Statements Sinus rhythm Left ventricular hypertrophy Compared to ECG 01/09/2022 11:05:39 Sinus bradycardia no longer present Early repolarization no longer present Electronically Signed On 01-12-2022 11:33:57 EDT by Wellington Ribeiro
== END 2022-01-12 06:41 | disposition home or self-care (01) ==
LOC: ED 09:17
DX: R53.1 Weakness (principal); R11.0 Nausea; I10 Essential (primary) hypertension; E11.9 Type 2 diabetes mellitus without complications
CPT/HCPCS: 36415; 80053; 84439; 84443; 85025; 93005; 96360; 99283